=== PATIENT | male | born 1960 | race Caucasian/White ===

== ENCOUNTER 2023-07-05 09:22 | Outpatient (CLI) | payer OTHER, SELFPAY | END 2023-07-05 09:23 | disposition home or self-care (01) | PROVIDERS: PCP Internal Medicine; Visit Provider Internal Medicine | DX: Z00.00 Encounter for general adult medical examination without abnormal findings (principal); I10 Essential (primary) hypertension; E78.5 Hyperlipidemia, unspecified; R79.89 Other specified abnormal findings of blood chemistry; Z12.5 Encounter for screening for malignant neoplasm of prostate | CPT/HCPCS: 80053; 80061; G0103 ==

== ENCOUNTER 2024-02-15 08:35 | Outpatient (CLI) | payer OTHER, SELFPAY ==
--- OUTSIDE RECORDS SUMMARY | 2024-02-16 10:29 | XMS_ITS | Clinical Summary ---
Author Organization [employer] Address [address] [address] Care Team Providers Care Clean Rice Broker Name Role Phone Stevan Bright MD Primary Care Provider [phone] Source Comments You are receiving this document as you are listed as the primary care provider,follow-up provider, or the patient has been referred to you for consultation.This is in compliance with the Medicare and[facility] EHR Incentive Program,which states Providers who transition their patient to another setting of careor provider of care or refers their patient to another provider of care shouldprovide summary care record for each transition of care or referral. [employer] Allergies No known active allergies Medications Medication Sig Dispensed Refills Start Date End Date Status hydrochlorothiazid e 12.5 MG capsule Take 1 capsule by mouth daily (every 24 hours). LW Addl Instr:Indicated for: High Blood Pressure 04/21/2010 Active omeprazole (PRILOSEC) 20 MG capsule Take 1 capsule by mouth daily (every 24 hours). LW Addl Instr:Indicated for: Acid Reflux 90 2 06/15/2009 Active fexofenadine (GALDINO) 180 MG tabletIndications: Psoriasis,Medicati on management Take 180 mg by mouth daily (every 24 hours). 06/05/2015 Active losartan (COZAAR) 100 MG tablet TK 1 T PO QD 3 06/10/2016 Active escitalopram oxalate (LEXAPRO) 20 MG tabletIndications: Psoriasis,Medicati on management TK 1 T PO QD 3 03/09/2018 Active rosuvastatin (CRESTOR) 5 MG tablet 1 06/05/2019 Active fluocinonide (LIDEX) 0.05 % external solutionIndication s:Psoriasis vulgaris Apply 1 Application topically two times a day. 60 mL 6 06/10/2019 Active adalimumab (HUMIRA PEN) 40 MG/0.8ML pen injectorIndication s:Psoriasis vulgaris INJECT 40MG SUBCUTANEOUSLY EVERY OTHER WEEK 2 Pen 11 06/10/2019 Active clobetasol (TEMOVATE) 0.05 % ointmentIndication s:Psoriasis,Medica tion management Apply to psoriasis BID as needed until smooth. Do not apply to face, armpit, groin. 45 g 1 09/21/2021 Active Active Problems Problem Noted Date Diagnosed Date Pulmonary embolism and infarction 10/24/2008 Overview (02/22/2017): Pulmonary Embolus Esophageal reflux 11/26/2004 Overview (02/22/2017): LW Onset: [id number] ; Gastroesophageal Reflux Disease Psoriasis 05/25/2004 Overview (02/03/2016): LW Onset: [id number] Essential hypertension 12/07/2002 Overview (02/22/2017): Hypertension Hyperlipidemia 12/07/2002 Lumbago 12/07/2002 Overview (02/22/2017): Pain Low Back Osteoarthritis 12/07/2002 Overview (02/22/2017): DJD Allergic rhinitis 12/07/2002 Overview (02/22/2017): Rhinitis Allergic NOS Encounters Date Type Department Care Team Description 01/15/2024 8:00 AM CDT Lab Visit [facility] [id number] [place] [address] Hypogonadism in male (HRC); Testicular hypofunction (HRC) from Last 3 Months Immunizations Name Administration Dates Next Due HepA-HepB (T[facility]RIX, 18+ yrs) 11/26/2004,10/23/19 05 HepB Adult (Engerix-B, 20+ yrs, 3 dose series) 1 07/27/2004 Influenza, Unspecified Formulation 04/22/1995 Td 1999 Social History Tobacco Use Types Packs/Day Years Used Date Smoking Tobacco: Never Smokeless Tobacco: Never Sex and Gender Information Value Date Recorded Sex Assigned at Not on file Gender Identity Not on file Sexual Orientation Not on file Last Filed Vital Signs Vital Sign Reading Time Taken Comments Blood Pressure 112/80 12/02/2008 9:13 AM CDT Pulse 60 12/02/2008 9:13 AM CDT Temperature 36.2 ??C (97.2 ??F) 06/03/2005 2 :43 PM PROJECT CONTROL OFFICER ORAL C: 36.2 C Respiratory Rate 16 12/02/2008 9:13 AM CDT Oxygen Saturation - - Inhaled Oxygen Concentration - - Weight 120.7 kg (265 lb 15. 8 oz) 10/24/2008 9:42 AM CDT C: 120.7kg Height - - Body Mass Index - - Plan of Treatment Health Maintenance Due Date Last Done Comments Colon Cancer Screening Plan Due 1962 HIV Screening (Preventive Services) 1978 Adult Preventive Visit 02/24/1980 HepA (3 of 3 - Hep A Twinrix risk 3-dose series) 04/28/2005 11/26/2004, 10/22/2004 Zoster/Shingles (1 of 2) 02/24/2012 Cholesterol 05/06/2013 05/06/2008, 03/04, 12/07/2006, Additional history exists COVID-19 Vaccine (3 - 2022- season) 2023 10/13/2020, 09/22/2020 Influenza (#1) 2024 03/11/2020, 04/04, 05/13/2018, Additional history exists PSA Screening Discussion 01/14/2025 024, 08/18/2023, 05/25/2022 DTaP/Tdap/Td (3 - Tdap) 04/14/2026 04/14/20 16, 12/24/2010, 07/03/2004, Additional history exists HepB Completed 05/27/2005, 11/01, 10/22/2004 Hep C Screening (Preventive Services) Completed 06/05/2015 Hib Aged Out No longer eligi ble based on patient's age to complete this topic IPV (Polio) Aged Out No longer eligi ble based on patient's age to complete this topic MCV4 Aged Out No longer eligi ble based on patient's age to complete this topic Pneumococcal Aged Out No longer eligi ble based on patient's age to complete this topic Procedures Procedure Name Priority Date/Time Associated Diagnosis Comments PROSTATIC SPECIFIC ANTIGEN(SCREEN) Routine 01/15/2024 8:01 AM CDT Hypogonadism in male (HRC) Testicular hypofunction (HRC) HEMOGLOBIN, BLOOD Routine 01/15/2024 8:0 1 AM CDT Hypogonadism in male (HRC) Testicular hypofunction (HRC) TESTOSTERONE,TOTAL ,FREE & BIOAVAILABLE, MALES Routine 01/15/2024 8:01 AM CDT Hypogonadism in male (HRC) Testicular hypofunction (HRC) HEPATITIS C ANTIBODY, WITH REFLEX Routine 06/05/2015 11:10 AM PROJECT CONTROL OFFICER Psoriasis Medication management LIPID PANEL & DIRECT LDL (IF NEEDED) Routine 05/06/2008 11:35 AM PROJECT CONTROL OFFICER from Last 3 Months or Most Recently Relevant to Health Maintenance Results * (ABNORMAL) Testosterone,Free,Bioavailable,Total,Adult Males or Individuals on Testosterone Hormone Therapy (01/15/2024 8:01 AM CDT) Sex Hormone Binding Globulin Adult 25 13 - 74 nmol/L 01/15/2024 2:02 PM [facility] Testosterone 822(H) 200 - 745 ng/dL 01/15/2024 2:02 PM T [facility] Testosterone, Free 21.8(H) 3.1 - 12.8 ng/dL 01/15/2024 2:02 PM T [facility] Testosterone, Bioavailable 510.8(H) 71.7 - 300.0 ng/dL 01/15/2024 2:02 PM T [facility] Blood Venipuncture / Unknown 01/15/2024 8:01 AM CDT 01/15/2024 8:01 AM CDT Francisco Colin MD LAB_1 Performing Organization Address [facility]/ZIP Co de Phone Number [facility] [address] * PSA - Prostatic Specific Antigen (Screen) (01/15/2024 8:01 AM CDT) Pathologist [facility] [place] Prostatic Specific Antigen 2.1 0.0 - 4.0 ng/mL 01/15/2024 12:21 PM CDT [facility] Blood Venipuncture / Unknown 01/15/2024 8:01 AM CDT 01/15/2024 8:01 AM CDT Narrative [facility] - 01/15/2024 12:21 PM CDT The Built In PSA Chemiluminescent immunoassay is used. Results obtained with different test methods or kits cannot be used interchangeably. Francisco Colin MD LAB_1 Performing Organization Address [facility] Co de Phone Number [address] * Hemoglobin, Blood (01/15/2024 8:01 AM CDT) Pathologist [facility] [place] Hemoglobin 15.9 13.5 - 17.5 g/dL 01/15/2024 8:12 AM CDT [facility] Blood Venipuncture / Unknown 01/15/2024 8:01 AM CDT 01/15/2024 8:01 AM CDT Francisco Colin MD LAB_1 Performing Organization Address City/[facility] Co de Phone Number [facility] [address] [place] [address] * Hepatitis C Antibody, with Reflex (06/05/2015 11:10 AM PROJECT CONTROL OFFICER) Pathologist [facility] [place] Hepatitis C Antibody Non-React Non-Reacti ve HP CONVERSION 06/05/2015 11:1 0 AM PROJECT CONTROL OFFICER 06/05/2015 1:19 PM PROJECT CONTROL OFFICER Narrative HP CONVERSION - 06/05/2015 5:33 PM PROJECT CONTROL OFFICER Performed at [facility], [address] [place] [address] CLIA number [id number] Transcriptions 08/11/2016 12:26 AM CSTNotes Recorded by Tea Mac LPN on 06/10/2015 at 10:04 AMPatient was notified of normal CBC, LFTs, and clear chest x-ray. He was also informed at that time (06/08/2015) we would only contact him if the TB, Hep B, and Hep C testing was abnormal.------Notes Recorded by Smiley Mosley MD on 06/09/2015 at 1:33 PMLabs drawn 06/05/15 as baseline for Humira:Quantiferon Gold TB test negHepatitis B surface antigen and core antibody negHepatitis C antibody negEarlier CBC and LFTs unremarkableAll labs fine to start Humira, once insurance issues are worked out.Will ask my nurse to call the pt with these results, and update him on the status of the Humira approval. Smiley Mosley MD LAB_1 HP CONVERSION * (ABNORMAL) Lipid Panel and Direct LDL(If Needed) (05/06/2008 11:35 AM PROJECT CONTROL OFFICER) Hours Fasting 12.0 Hours HP CONVERSION Cholesterol/HDL Ratio Screen 5.6 No normal range HP CONVERSION Cholesterol 254(H) <200 mg/dL HP CONVERSION HDL Cholesterol 45 >40 mg/dL HP CONVERSION Triglycerides 185(H) 0 - 149 mg/dL HP CONVERSION LDL Calculated 172(H) 0 - 130 mg/dL HP CONVERSION Comment: 05/06/2008 11:3 5 AM PROJECT CONTROL OFFICER Stevan Bright MD LAB_1 HP CONVERSION from Last 3 Months or Most Recently Relevant to Health Maintenance Care Teams Clean Rice Broker Relationship Specialty Start Date End Date Stevan Bright MD [address] [facility] [place] [id number] PCP - General 10/02/10
--- OUTSIDE RECORDS SUMMARY | 2024-02-16 10:29 | XMS_ITS | Encounter Summary ---
Author Organization [employer] Address [address] [address] Care Team Providers Care Multimedia Specialist Name Role Phone Stevan Bright MD Primary Care Provider [phone] Encounter Details Date Type Department Care Team (Late st Contact Info) Description 01/15/2024 8:00 AM CDT Lab Visit [facility] [address] [place] [phone] Hypogonadism in male (HRC); Testicular hypofunction (HRC) Social History Tobacco Use Types Packs/Day Years Used Date Smoking Tobacco: Never Smokeless Tobacco: Never Sex and Gender Information Value Date Recorded Sex Assigned at Not on file Gender Identity Not on file Sexual Orientation Not on file documented as of this encounter Plan of Treatment Not on file documented as of this encounter Procedures Procedure Name Priority Date/Time Associated Diagnosis Comments TESTOSTERONE,TOTAL ,FREE & BIOAVAILABLE, MALES Routine 01/15/2024 8:01 AM CDT Hypogonadism in male (HRC) Testicular hypofunction (HRC) PROSTATIC SPECIFIC ANTIGEN(SCREEN) Routine 01/15/2024 8:01 AM CDT Hypogonadism in male (HRC) Testicular hypofunction (HRC) HEMOGLOBIN, BLOOD Routine 01/15/2024 8:0 1 AM CDT Hypogonadism in male (HRC) Testicular hypofunction (HRC) documented in this encounter Results * PSA - Prostatic Specific Antigen (Screen) (01/15/2024 8:01 AM CDT) Prostatic Specific Antigen 2.1 0.0 - 4.0 ng/mL 01/15/2024 12:21 PM CDT [facility] Blood Venipuncture / Unknown 01/15/2024 8:01 AM CDT 01/15/2024 8:01 AM CDT Narrative [facility] - 01/15/2024 12:21 PM CDT The [facility] PSA Chemiluminescent immunoassay is used. Results obtained with different test methods or kits cannot be used interchangeably. Francisco Colin MD LAB_1 [facility] [address] [place], [place] [id number] [place] [address] * Hemoglobin, Blood (01/15/2024 8:01 AM CDT) Hemoglobin 15.9 13.5 - 17.5 g/dL 01/15/2024 8:12 AM CDT [facility] Blood Venipuncture / Unknown 01/15/2024 8:01 AM CDT 01/15/2024 8:01 AM CDT Francisco Colin MD LAB_1 [facility] [address] [place] [address] * (ABNORMAL) Testosterone,Free,Bioavailable,Total,Adult Males or Individuals on Testosterone Hormone Therapy (01/15/2024 8:01 AM CDT) Sex Hormone Binding Globulin Adult 25 13 - 74 nmol/L 01/15/2024 2:02 PM CDT [facility] Testosterone 822(H) 200 - 745 ng/dL 01/15/2024 2:02 PM CDT [facility] Testosterone, Free 21.8(H) 3.1 - 12.8 ng/dL 01/15/2024 2:02 PM CDT [facility] Testosterone, Bioavailable 510.8(H) 71.7 - 300.0 ng/dL 01/15/2024 2:02 PM CDT [facility] Blood Venipuncture / Unknown 01/15/2024 8:01 AM CDT 01/15/2024 8:01 AM CDT Francisco Colin MD LAB_1 Performing Organization Address City/State/[facility] Co de Phone Number [facility] [address] [id number] documented in this encounter Visit Diagnoses Diagnosis Hypogonadism in male (HRC) Testicular hypofunction (HRC) Other testicular hypofunction documented in this encounter Care Teams Multimedia Specialist Relationship Specialty Start Date End Date Stevan Bright MD [address] [place] [address] PCP - General 10/02/10 documented as of this encounter
--- OUTSIDE RECORDS SUMMARY | 2024-02-16 10:29 | XMS_ITS | Data Portability ---
Author Organization [facility] danny, [facility] Address [address] [facility] [address] [place] [address] Care Team Providers Care Toucher Up Name Role Phone ALBA LEO Primary Care Provider Assessment No assessment recorded. Plan of Treatment Reminders Order Date Submit Date Provider Last Modified By Organization Details Last Modified Time Details Appointments None record ed. Lab testos terone , total, serum - Needed at the end of Octobe r 2021 022 [email or web address] [facility], [id number] [place] [address], [address], 13:51:55 hemogl obin (Hb), blood 2021 022 [email or web address] [facility], [id number] [place] [address], [address], 2 13:51:55 PSA, total, serum or plasma - Needed at the end of Octobe r 2021 022 [facility], [address] [place], [address], 2 13:51:56 testos terone , total, serum - Needed in February 042021 022 [email or web address] [facility], [address] [place], [address], 2 13:52:04 testos terone , total, serum 2022 023 [email or web address] [facility], [address] [place], [address], 3 08:34:11 testos terone , total, serum 2022 023 [email or web address] [facility], [address] [place] [address], [address], 3 08:34:11 testos terone , total, serum - Needed Januar y of 2023 023 [email or web address] [facility], [address] [place] [address], [address], 3 08:58:53 hemogl obin (Hb), blood - Needed Januar y 2023 023 [email or web address] [facility], [address] [place] [address], [address], 3 08:58:53 PSA, total, serum or plasma - Needed Januar y 2023 023 [email or web address] [facility], [address] [place] [address], [address], 3 08:58:53 testos terone , total, serum 2023 024 [email or web address] [facility], [address] [place] [address], [address], 4 09:12:01 testos terone , total, serum 2023 024 [email or web address] [facility], [address] [place] [address], [address], 4 18:05:37 PSA, total, serum or plasma 2023 024 jens Mathew [facility], [address] [place], [address], 4 18:05:37 Referral None record ed. Procedures None record ed. Surgeries None record ed. Imaging None record ed. Medication Orders tadala margarita 20 mg tablet 2021 022 [email or web address] Not available 2 09:22:35 testos terone 1 % (50 mg/5 gram) transd ermal gel packet 2021 022 [facility][id number], [address] [place], [address], 2 10:18:26 testos terone 1 % (50 mg/5 gram) transd ermal gel packet 2022 023 [facility], [address] [place] [address], [address], 3 11:27:56 AndroG el 1 % (50 mg/5 gram) transd ermal gel packet 2022 023 [facility][id number], [address] [place], [address], 3 11:03:56 testos terone 1 % (50 mg/5 gram) transd ermal gel packet 2023 024 [facility] #[id number], [address] [place], [address], 4 13:46:49 tadala margarita 20 mg tablet 2023 024 [facility], [address] [place], [address], 4 11:37:14 testos terone 1 % (25 mg/2.5 gram) transd ermal gel packet 2023 024 [facility][id number], [address] [place], [address], 4 11:36:28 testos terone 1 % (50 mg/5 gram) transd ermal gel packet 2023 024 [facility][id number], [address] [place], [address], 11:36:27 Patient TargetsNo targets recorded. Patient InstructionsNo instructions recorded. Reason for Referral None Reported. Results Created Date Observation Date Name Description Value Unit Range Abnormal Flag LastModifiedBy Organization Detail LastModifiedTime Result Notes None recorded. Problems Name Status Onset Date Resolution Date Notes Provider Name and Address Organization Details Recorded Time Hypogonadism Active 1 Rupesh Duckworth MD [address] [place] [address],[facility] [address], [place], [address] 2021 09:59:40 Problem Notes None recorded. Procedures Surgical History Date Name Laterality Status Provider Name and Address Organization Details Recorded Time 7 colonoscopy completed Anisha cam [facility] 2021 09:46:08 Imaging Results None recorded. Procedure Notes None recorded. Medical Equipment None Reported. Allergies No known drug allergies Medications Name Sig Start Date Stop Date Status Note LastModified by Organization Details LastModified Time Prescriptio n - Prior Authorizati on Request 01/16 completed Not Available Not Available Not Available losartan 50 mg tablet Take 1 tablet every day by oral route. 07/20 completed Not Available Not Available Not Available amlodipine 2.5 mg tablet TAKE 1 TABLET (2.5MG) BY MOUTH ONCE A DAY 01/16 completed Not Available Not Available Not Available fexofenadin e 180 mg tablet TAKE 1 TABLET BY MOUTH EVERY DAY NEEDED active Not Available Not Available No t Available terbinafine HCl 250 mg tablet TAKE 1 BY MOUTH DAILY X 1 WEEK, THEN 3 WEEKS OFF AND REPEAT MONTHLY X 3 MONTHS active Not Available Not Available No t Available simvastatin 20 mg tablet Take 1 tablet every day by oral route. 07/20 completed Not Available Not Available Not Available omeprazole 20 mg capsule,del ayed release TAKE 1 CAPSULE BY MOUTH EVERY DAY active Not Available Not Available No t Available hydrochloro thiazide 25 mg tablet TAKE 1 TABLET BY MOUTH EVERY DAY active Not Available Not Available No t Available clobetasol 0.05 % topical ointment APPLY TO PSORIASIS TWICE A DAY NEEDED RASH 01/16 completed Not Available Not Available Not Available azelastine 137 mcg (0.1 %) nasal spray SPRAY 1 SPRAY INTRANASA LLY TWICE A DAY 07/20 completed Not Available Not Available Not Available fluocinonid e 0.05 % topical solution APPLY TO SCALP EVERY DAY 01/16 completed Not Available Not Available Not Available testosteron e 1 % (25 mg/2.5 gram) transdermal gel packet Apply 1 packet every day by transderm al route. 2023 active Not Available Not Available Not Avai lable ipratropium bromide 42 mcg (0.06 %) nasal spray INHALE 1 SPRAY IN EACH NOSTRIL EVERY 6 HOURS NEEDED active Not Available Not Available No t Available ketoconazol e 2 % topical cream APPLY TO LEFT AXILLAE TWICE DAILY 07/20 completed Not Available Not Available Not Available losartan 100 mg tablet TAKE 1 TABLET BY MOUTH EVERY DAY active Not Available Not Available No t Available fluticasone propionate 50 mcg/actuati on nasal spray,suspe nsion SPRAY 2 SPRAYS INTO EACH NOSTRIL EVERY DAY 07/19 completed Not Available Not Available Not Available amoxicillin 875 mg-potassiu m clavulanate 125 mg tablet TAKE 1 TABLET BY MOUTH TWICE A DAY FOR 10 DAYS 07/20 completed Not Available Not Available Not Available testosteron e 1 % (50 mg/5 gram) transdermal gel packet APPLY 1 PACKET EVERY DAY BY TRANSDERM AL ROUTE FOR 90 DAYS. active Not Available Not Available No t Available tobramycin 0.3 %-dexametha sone 0.1 % eye drops,suspe nsion INSTILL 1 DROP IN BOTH EYES THREE TIMES A DAY 07/20 completed Not Available Not Available Not Available neomycin 3.5 mg/g-polymy leo B 10,000 unit/g-dexa meth 0.1 % eye oint APPLY 1 APPLICATI ON IN LEFT EYE THREE TIMES A DAY 07/20 completed Not Available Not Available Not Available rosuvastati n 5 mg tablet TAKE 1 TABLET BY MOUTH EVERYDAY AT BEDTIME active Not Available Not Available No t Available Prilosec OTC 20 mg tablet,sharan yed release Take by oral route. 07/20 completed Not Available Not Available Not Available bupropion HCl XL 300 mg 24 hr tablet, extended release TAKE 1 TABLET BY MOUTH EVERY DAY active Not Available Not Available No t Available bupropion HCl XL 150 mg 24 hr tablet, extended release TAKE 1 TABLET BY MOUTH EVERY DAY 07/20 completed Not Available Not Available Not Available tadalafil 20 mg tablet Take 1 tablet every day by oral route. 2023 active Not Available Not Available Not Avai lable hydrochloro thiazide 07/20 completed Not Available Not Available Not Available Estella Allergy active Not Available Not Available Not Available azelastine 137 mcg-flutica sone 50 mcg/spray nasal spray SPRAY 1 SPRAY INTO EACH NOSTRIL TWICE A DAY active Not Available Not Available No t Available Paxlovid 300 mg (150 mg x 2)-100 mg tablets in a dose pack TAKE 2 TABLETS OF NIRMATREL VIR AND 1 TABLET OF RITONAVIR TWICE DAILY FOR 5 DAYS 07/20 completed Not Available Not Available Not Available Vitals Date Recorded Body height Body mass index (BMI) Body weight Provider Name and Address Organization Details Last Updated DateTime 07/20/2022 184.15 cm 33.4 kg/m2 762569.[address] [facility] 07/20/2022 10:53:32 Date Recorded Body height Body mass index (BMI) Body weight Provider Name and Address Organization Details Last Updated DateTime 01/18/2023 184.15 cm 33.4 kg/m2 985413.09 g Francisco Colin MD [address] [place] [address],[address], [address], [facility] 01/18/2023 10:40:39 Date Recorded Body height Body mass index (BMI) Body weight Provider Name and Address Organization Details Last Updated DateTime 07/19/2023 184.15 cm 34.1 kg/m2 743232.05 g Francisco Colin MD [address] [place] [address],[address], [address], [facility] 07/19/2023 11:37:33 Date Recorded Body height Body mass index (BMI) Body weight Provider Name and Address Organization Details Last Updated DateTime 01/17/2024 184.15 cm 33.4 kg/m2 678059.09 g Francisco Colin MD [address] [facility],[address], [place], [address] 01/17/2024 11:14:08 Date Recorded Body height Body mass index (BMI) Body weight Provider Name and Address Organization Details Last Updated DateTime 11/03/2021 184.15 cm 33.4 kg/m2 937121.09 g Tasha Vipul [facility] 11/03/2021 15:05:10 Social History Question Answer Notes LastModified by Organizat ion Details LastModified Time Tobacco Smoking Status Never Smoker Rupesh Duckworth MD [address] [facility] [address], [address] 06/30/2020 15:22:15 What Is Your Level Of Alcohol Consumption? Moderate Information not available 07/20/2022 How Many Times Per Week Do You Consume Alcohol? 5-7 Times Per Week Information not available 01/18/2023 What Is Your Level Of Caffeine Consumption? Moderate Information not available 07/20/2022 Are You Currently Employed? Yes Information not available 07/20/2022 Recreational Drug Use No Information not available 07/20/2022 What Was The Date Of Your Most Recent Tobacco Screening? 01/17/2024 Information not available 01/17/2024 What Is Your Relationship Status? Information not available 07/20/2022 Do You Use Any Illicit Or Recreational Drugs? No Information not available 07/20/2022 Has Tobacco Cessation Counseling Been Provided? No Information not available 07/20/2022 Do You Or Have You Ever Used Any Other Forms Of Tobacco Or Nicotine? No Information not available 07/20/2022 How Many Days In The Past Year Have You Consumed 5 Or More Drinks? 0 Information no t available 01/18/2023 Sex: Unknown Functional Status None recorded. Mental Status None recorded. Family History Relationship Description Onset Age of this Age Resolved Age Notes Father Family history of malignant neoplasm Father Heart failure Medical History Condition Response Other N High Blood Pressure Y Kidney Stones N Lung Disease N Depression N GERD/Acid Reflux Y Sexually Transmitted Infection N Diabetes N Bleeding Disorder N Cancer N High Cholesterol Y Heart Disease N Immunizations Vaccine Type Date Status Provider Name and Address Organization Details Recorded Time Influenza, recombinant, quadrivalent, PF 05/01/2019 completed Wendy Esa null, [facility] 02/07/2023 11:52:16 Influenza, recombinant, quadrivalent, PF 06/08/2021 completed Wendy Esa null, [facility] 02/07/2023 11:52:16 COVID-19, mRNA, LNP-S, PF, 30 mcg/0.3 mL dose 09/22/2020 completed Wendy Esa null, [facility] 02/07/2023 11:52:16 COVID-19, mRNA, LNP-S, PF, 30 mcg/0.3 mL dose 10/13/2020 completed Wendy Esa null, [facility] 02/07/2023 11:52:16 COVID-19, mRNA, LNP-S, PF, 30 mcg/0.3 mL dose 06/08/2021 completed Wendy Esa null, [facility] 02/07/2023 11:52:16 Tdap 12/24/2010 completed Wendy Esa null, [facility] 02/07/2023 11:52:16 Tdap 02/21/2022 completed Wendy Esa null, [facility] 02/07/2023 11:52:26 Tdap 04/14/2016 completed Wendy Esa null, [facility] 02/07/2023 11:52:16 Influenza, split virus, trivalent, preservative 04/22/1995 completed Wendy Esa null, [facility] 02/07/2023 11:52:16 Td (adult), 5 Lf tetanus toxoid, preservative free, adsorbed 07/03/2004 completed Wendy Esa null, [facility] 02/07/2023 11:52:16 Td (adult), 2 Lf tetanus toxoid, preservative free, adsorbed 1999 completed Wendy Esa null, [facility] 02/07/2023 11:52:16 Hep B, adult 05/27/2005 completed Wendy Esa null, [facility] 02/07/2023 11:52:16 Influenza, split virus, quadrivalent, PF 03/11/2020 completed Wendy Esa null, [facility] 02/07/2023 11:52:16 Influenza, split virus, quadrivalent, PF 04/14/2016 completed Wendy Esa null, [facility] 02/07/2023 11:52:16 Influenza, split virus, quadrivalent, PF 05/13/2018 completed Wendy Esa null, [facility] 02/07/2023 11:52:16 Influenza, split virus, quadrivalent, PF 05/19/2022 completed Wendy Esa null, [facility] 02/07/2023 11:52:26 Hep A-Hep B 10/22/2004 completed Wendy Esa null, [facility] 02/07/2023 11:52:16 Hep A-Hep B 11/26/2004 completed Wendy Esa null, [facility] 02/07/2023 11:52:16 Past Encounters Encounter ID Performer Location Encounter Start Date Encounter Closed Date Diagnosis/Indication Diagnosis SNOMED-CT Code [id number] MD ELISABET Kan_Ofe mascorro [address] [place] [id number] 06/30/2020 15:10:31 07/06/2020 14:36:56 Male hypogonadism 63017828 Primary er ectile dysfunction 169389204 Hypogonadism [id number] MD ELISABET Kan_Shelli [address] [facility],[address] [place] [address] 2021 09:38:31 2021 10:39:52 Hypogonadism [id number] MD ELISABET Grande_Shannan [address] [place] [id number] 11/03/2021 14:21:42 11/10/2021 12:56:03 Hypogonadism 30359770 Erectile dysfunction 860 452391 [id number] MD ELISABET Grande_Shannan [address] [place] [id number] 07/20/2022 10:43:27 07/27/2022 16:12:26 Hypogonadism 38204337 Erectile dysfunction 860 [id number] Francisco Colin MD _[place] [address] [place] [id number] 01/18/2023 10:29:06 01/26/2023 14:22:52 Hypogonadism 39284513 Erectile dysfunction 860 [id number] Francisco Colin MD _[place] [address] [place] [address] 07/19/2023 11:34:14 07/21/2023 10:47:50 Hypogonadism 30632918 Erectile dysfunction 860 [id number] Francisco Colin MD _[place] [address] [place] [id number] 01/17/2024 11:00:32 01/23/2024 16:50:54 Hypogonadism 11450373 Erectile dysfunction 860 844173 Health Concerns Section Related Observation LastModified by Organization Detai ls LastModified Time None Recorded Concern Status LastModified by Organization Details LastModified Time None Recorded Advance Directives Directive None Recorded Payers Encounter Date Sequence Insurance Name Policy Number Policy Calderon Covered Member ID Calderon Member ID Guarantor Name 11/03/2021 1 [facility] [id number] Nayan Roper [id number] Nayan Roper 07/20/2022 1 [facility] [id number] Nayan Roper [id number] Nayan Roper 01/18/2023 1 [facility] [id number] Nayan Roper [id number] Nayan Roper 07/19/2023 1 [facility] [id number] Nayan Roper [id number] Nayan Roper 01/17/2024 1 [facility] [id number] Nayan Roper [id number] Nayan Roper Notes Date Note Type Note Provider Name and Address Organization Details Recorded Time 11/03/2021 text/html HPI Notes: 61 yo male with history of HTN, PE, hyperlipidemia, ED, and low testosterone. No Family Hx of prostate cancer. He has been seeing Dr. Duckworth for low testosterone. He is on Androgel 1% (50 mg/5 gm) 1 packet daily. 11/03/21 - He presents for follow-up on low Testosterone. He states his energy levels and libido have been good. He voids every 2-3 hours during the day and 0x/night. He denies hesitancy, urgency, or dysuria. He uses Cialis 20 mg prn with good results for ED. Testosterone - 221 (11/02/21) - 1012 (01/05/21) - 563 (06/29/20) Hgb - 16.8 (11/02/21) - 17.2 (01/15/21) PSA - 1.6 (11/02/21) - 1.42 (01/15/21) - 1.76 (06/30/20) Francisco Colin MD [address] [place] [address], [phone] [place] [facility] 11/09/2021 15:32:38 07/20/2022 text/html HPI Notes: 62 yo male with history of HTN, PE, hyperlipidemia, ED, and low testosterone. No Family Hx of prostate cancer. He has been seeing Dr. Duckworth for low testosterone. He is on Androgel 1% (50 mg/5 gm) 1 packet daily. 11/03/21 - He presents for follow-up on low Testosterone. He states his energy levels and libido have been good. He voids every 2-3 hours during the day and 0x/night. He denies hesitancy, urgency, or dysuria. He uses Cialis 20 mg prn with good results for ED. 07/20/22 - He presents for follow-up on low testosterone. He developed anxiety in late May and decrease his Androgel from 2 packets to 1 packet per day. His anxiety is better (also on Bupropion). He states his energy levels and libido are good. He has no complaints with urination - no urgency, hesitancy, or dysuria. He uses Cialis 20 mg prn with good results for ED. Testosterone - 221 (11/02/21) - 1012 (01/05/21) - 563 (06/29/20) - 803 (05/25/22) Hgb - 16.8 (11/02/21) - 17.2 (01/15/21) - 16.5 (05/25/22) PSA - 1.6 (11/02/21) - 1.42 (01/15/21) - 1.76 (06/30/20) - 1.4 (05/25/22) Francisco Colin MD [address] [place] [address],[address], [place], [address], [facility] [place] [facility] 07/20/2022 12:43:20 01/18/2023 text/html HPI Notes: 62 yo male with history of HTN, PE, hyperlipidemia, ED, and low testosterone. No Family Hx of prostate cancer. He has been seeing Dr. Duckworth for low testosterone. He is on Androgel 1% (50 mg/5 gm) 1 packet daily. 11/03/21 - He presents for follow-up on low Testosterone. He states his energy levels and libido have been good. He voids every 2-3 hours during the day and 0x/night. He denies hesitancy, urgency, or dysuria. He uses Cialis 20 mg prn with good results for ED. 07/20/22 - He presents for follow-up on low testosterone. He developed anxiety in late May and decrease his Androgel from 2 packets to 1 packet per day. His anxiety is better (also on Bupropion). He states his energy levels and libido are good. He has no complaints with urination - no urgency, hesitancy, or dysuria. He uses Cialis 20 mg prn with good results for ED. 01/18/23 - He presents for follow-up on low testosterone. He states his energy level is okay. He has no complaints with urination - no urgency, hesitancy, or dysuria. Testosterone - 518 (01/11/23) - 803 (05/25/22) - 221 (11/02/21) - 1012 (01/05/21) - 563 (06/29/20) Hgb - 16.5 (05/25/22) - 16.8 (11/02/21) - 17.2 (01/15/21) PSA - 1.4 (05/25/22) - 1.6 (11/02/21) - 1.42 (01/15/21) - 1.76 (06/30/20) Francisco Colin MD [address] [place] [address],[address], [place], [address], [facility] [place] [facility] 01/21/2023 14:13:36 07/19/2023 text/html HPI Notes: 63 yo male with history of HTN, PE, hyperlipidemia, ED, and low testosterone. No Family Hx of prostate cancer. He has been seeing Dr. Duckworth for low testosterone. He is on Androgel 1% (50 mg/5 gm) 1 packet one day / alternate with 2 packets the next day. 11/03/21 - He presents for follow-up on low Testosterone. He states his energy levels and libido have been good. He voids every 2-3 hours during the day and 0x/night. He denies hesitancy, urgency, or dysuria. He uses Cialis 20 mg prn with good results for ED. 07/20/22 - He presents for follow-up on low testosterone. He developed anxiety in late May and decrease his Androgel from 2 packets to 1 packet per day. His anxiety is better (also on Bupropion). He states his energy levels and libido are good. He has no complaints with urination - no urgency, hesitancy, or dysuria. He uses Cialis 20 mg prn with good results for ED. 01/18/23 - He presents for follow-up on low testosterone. He states his energy level is okay. He has no complaints with urination - no urgency, hesitancy, or dysuria. 07/19/23 - He presents for follow-up on low Testosterone. He states his energy level is okay. He voids every 2-3 hours during the day and 0x/night. Testosterone - - 518 (01/11/23) - 803 (05/25/22) - 221 (11/02/21) - 1012 (01/05/21) - 563 (06/29/20) Hgb - 16.5 (05/25/22) - 16.8 (11/02/21) - 17.2 (01/15/21) PSA - 1.4 (05/25/22) - 1.6 (11/02/21) - 1.42 (01/15/21) - 1.76 (06/30/20) Francisco Colin MD [address] [place] [address],[address], [address], [facility] [place] [facility] 07/19/2023 13:57:13 01/17/2024 text/html HPI Notes: 63 yo male with history of HTN, PE, hyperlipidemia, ED, and low testosterone. No Family Hx of prostate cancer. He has been seeing Dr. Duckworth for low testosterone. He is on Androgel 1% (50 mg/5 gm) 1 packet one day / alternate with 2 packets the next day. 01/18/23 - He presents for follow-up on low testosterone. He states his energy level is okay. He has no complaints with urination - no urgency, hesitancy, or dysuria. 07/19/23 - He presents for follow-up on low Testosterone. He states his energy level is okay. He voids every 2-3 hours during the day and 0x/night. 01/17/24-He presents for follow-up on low Testosterone. He reports good energy levels. He voids every 2-3 hours during the day and 0x/night. Testosterone - 822 (01/15/24) - 518 (01/11/23) - 803 (05/25/22) - 221 (11/02/21) - 1012 (01/05/21) - 563 (06/29/20) Hgb - 15.9 (01/15/24) - 16.5 (05/25/22) - 16.8 (11/02/21) - 17.2 (01/15/21) PSA - 2.1 (01/15/24) - 1.4 (05/25/22) - 1.6 (11/02/21) - 1.42 (01/15/21) - 1.76 (06/30/20) Francisco Colin MD [address] [place] [address],[facility] [address], [place], [address], [facility] 01/17/2024 11:52:37
== END 2024-02-15 08:36 | disposition home or self-care (01) ==
LOC: NFLDREF 02-16 10:27
PROVIDERS: PCP Internal Medicine; Referring Provider Internal Medicine; Visit Provider Internal Medicine
DX: E78.5 Hyperlipidemia, unspecified (principal); I10 Essential (primary) hypertension
CPT/HCPCS: 80053; 80061

== ENCOUNTER 2025-02-19 08:17 | Outpatient (CLI) | payer OTHER, SELFPAY | END 2025-02-19 08:18 | disposition home or self-care (01) | LOC: NFLDREF 02-24 16:30 | PROVIDERS: PCP Internal Medicine; Referring Provider Internal Medicine; Visit Provider Internal Medicine | DX: E78.5 Hyperlipidemia, unspecified (principal); I10 Essential (primary) hypertension; Z12.5 Encounter for screening for malignant neoplasm of prostate | CPT/HCPCS: 80053; 80061; G0103 ==